=== PATIENT | male | born 1970 | race Caucasian/White ===

== ENCOUNTER 2017-02-27 07:23 | Day surgery (SDC) | payer BC ==
[2017-02-25 11:43] VITALS: BMI 30.7
[~2017-02-27 07:23] MED LIST: LACTATED RINGERS 1,000 ML IV SCH
[2017-02-27 07:55] VITALS: TEMP 98.5
[2017-02-27] MEDS ORDERED: MIDAZOLAM 2 MG/2 ML VIAL ONE (08:54)
[2017-02-27] MEDS ORDERED: PROPOFOL 10 MG/ML 20 ML VIAL IV ONE (08:54)
[2017-02-27] MEDS ORDERED: fentaNYL (PF) 50 MCG/ML 2 ML AMP ONE (08:54)
[2017-02-27] MEDS ORDERED: LIDOCAINE 1% INJ 10MG/ML (20 ML MDV) ONE (08:54)
--- NOTE | 2017-02-27 09:30 | P.OP ---
Date of Procedure: 02/27/17 Preoperative Diagnosis: GERD Altered Bowel habit Postoperative Diagnosis: Reflux esophagitis Fundic polyps Gastritis Diverticolusis COoon polyp Internal hemorrhoids Procedure(s) Performed: EGD with biopsy using cold biopsy forceps Colonoscopy with biopsy using cold biopsy forceps Implants: Anesthesia: GABRIELA Surgeon: Ashkan Rodriguez Pathology: other Condition: stable Disposition: PACU Indications for Procedure: History of severe reflux Altered bowel habit Operative Findings: Description of Procedure: A timeout was performed to verify the correct patient and correct procedure. Patient was on continuous vitals and pulse ox monitoring throughout the procedure. He was placed in lateral decubitus position and a bite block was inserted. A well-lubricated endoscope was passed orally. The esophagus was intubated without difficulty. The EGD was passed beyond the pylorus into the first and second portion of the duodenum. There was mild duodenitis. Taken from the antrum and the body. Polyps were seen in the body as well as the cardia which were biopsied. The scope was retroflexed. . No mass, ulcer or bleeding noted within the gastric lumen. The GE junction is measured at 38 cm from the incisors . These were also taken from the body and the GE junction in the lower esophagus There was mild reflux esophagitis. The endoscope was gradually withdrawn. No other abnormality identified in the esophagus. Perianal examination revealed external skin tags. Digital rectal examination was performed. Normal prostate. A well-lubricated endoscope was passed per rectally and was gradually advanced beyond the sigmoid colon, splenic flexure, transverse colon, hepatic flexure and cecum. The ileocecal valve was visualized. Then mild diverticulosis noted without any evidence of diverticulitis in the sigmoid colon. Scope was gradually withdrawn inspecting all the mucosal surfaces. A polyp was seen in the ascending colon and sigmoid colon and biopsied with the help of a cold biopsy forceps. Bowel prep was fair on the left side and poor on the right side of the colon . No other polyps or masses noted. ONce in the Rectum the scope was retorflexed to revela Grade 2 hemorrhoids. he scope was gradually withdrawn. Patient tolerated the procedure well and was taken to post anesthesia care unit in stable condition. Plan - Discharge Summary New Discharge Prescriptions: No Action Omeprazole [PriLOSEC] 20 mg PO DAILY HYDROcodone/APAP 10-325MG [[place] 10-325] 1 tab PO Q8HR PRN PRN Reason: Pain Discharge Medication List HYDROcodone/APAP 10-325MG [[place] 10-325] 1 tab PO Q8HR PRN 02/27/17 [History] Omeprazole [PriLOSEC] 20 mg PO DAILY 02/27/17 [History]
[2017-02-27 09:52] VITALS: BP 126/86; PULSE 65; RESP 18
== END 2017-02-27 10:06 | disposition home or self-care (01) ==
LOC: ORWHC2ENDO 07:23
PROVIDERS: ATTEND Surgery
DX: K21.0 Gastro-esophageal reflux disease with esophagitis (principal); K29.50 Unspecified chronic gastritis without bleeding; K31.7 Polyp of stomach and duodenum; K57.30 Diverticulosis of large intestine without perforation or abscess without bleeding; K63.5 Polyp of colon; K64.1 Second degree hemorrhoids; K64.4 Residual hemorrhoidal skin tags; K29.80 Duodenitis without bleeding; Z87.19 Personal history of other diseases of the digestive system; F17.200 Nicotine dependence, unspecified, uncomplicated; Z79.899 Other long term (current) drug therapy
CPT/HCPCS: 88305; 88342; 45380; 43239; J2250; J2001; J3010; J2704

== ENCOUNTER → 2017-07-15 | Outpatient (CLI) | payer BC ==
[2017-07-15 14:04] LABS: Appearance,Urine Clear (Clear); Bilirubin,Urine Negative (Negative); Glucose,Urine (UA) Negative (Negative); Ketones,Urine Negative (Negative); Leukocyte Esterase,Urine Negative (Negative); Nitrite,Urine Negative (Negative); Protein,Urine Negative (Negative); Specific Gravity,Urine 1.015 (1.001-1.035); UA Billing (MACRO vs. MICRO) CHEM; Urobilinogen,Urine <2.0 mg/dL (<2.0)
[2017-07-15 14:11] LABS: Basophils # (A) 0.1 k/uL (0-0.2); Basophils % (A) 1 %; CH 30.5; CHCM 31.7; Eosinophils # (A) 0.3 k/uL (0-0.7); Eosinophils % (A) 3 %; HCT 49.7 % (39.0-53.0); HDW 2.42; HGB 15.5 gm/dL (13.0-17.5); Luc # (Auto) 0.14; Luc % (Auto) 2; Lymphocytes # (A) 1.9 k/uL (1.0-4.8); Lymphocytes % (A) 20 %; MCH 30.2 pg (25.0-35.0); MCHC 31.2 g/dL (31.0-37.0); MCV 96.6 fL (80.0-100.0); Mean Platelet Volume 7.8; Monocytes # (A) 0.3 k/uL (0-1.0); Monocytes % (A) 3 %; Neutrophils # (A) 6.9 k/uL (1.3-7.7); Neutrophils % (A) 72 %; RBC 5.14 m/uL (4.30-5.90); RDW 14.7 % (11.5-15.5); WBC 9.7 k/uL (3.8-10.6); WBC (Perox) 9.47
[2017-07-15 14:17] LABS: Partial Thromboplastin Time 25.2 sec (22.0-30.0); Prothrombin Time 10.4 sec (9.0-12.0)
[2017-07-15 14:28] LABS: Anion Gap 10 mmol/L; Blood Urea Nitrogen 17 mg/dL (9-20); Calcium 9.9 mg/dL (8.4-10.2); Carbon Dioxide 28 mmol/L (22-30); Chloride 103 mmol/L (98-107); Glucose 108 mg/dL (74-99); Non-African American GFR(MDRD) >60 (>60 ml/min/1.73 sqM); Potassium 4.8 mmol/L (3.5-5.1); Sodium 141 mmol/L (137-145)
--- NOTE | 2017-07-15 14:44 | XR ---
EXAMINATION TYPE: XR chest 2V DATE OF EXAM: 07/15/2017 COMPARISON: NONE HISTORY: Presurgical TECHNIQUE: Frontal and lateral views of the chest are obtained. FINDINGS: There is no focal air space opacity, pleural effusion, or pneumothorax seen. The cardiac silhouette size is within normal limits. The 9th thoracic vertebral body shows anterior wedging, lo ss of height of approximately 50% anteriorly. IMPRESSION: No acute cardiopulmonary process. There is a compression deformity suspected at T9.
== END | disposition home or self-care (01) ==
LOC: LABPAT 12:48
PROVIDERS: ATTEND Orthopaedic Surgery Orthopaedic Surgery of the Spine
DX: Z01.810 Encounter for preprocedural cardiovascular examination (principal); Z01.812 Encounter for preprocedural laboratory examination; M43.17 Spondylolisthesis, lumbosacral region
CPT/HCPCS: 36415; 71020; 80048; 81003; 85025; 85610; 85730; 86850; 86900; 86901; 87070

== ENCOUNTER 2017-07-23 10:47 | Inpatient (IN) | payer BC ==
[2017-07-16 14:37] VITALS: BMI 28.5
[~2017-07-23 10:47] MED LIST changes: +BACITRACIN 50,000 UNIT, POLYMYXIN B 500,000 UNIT in SODIUM CHLORIDE 0.9% IRRIGATIO 1,00... IRRIGATION ONE; +DEXAMETHASONE SOD PHOSPHATE 10 MG/ML 1 ML VIAL IV ONE; -LACTATED RINGERS 1,000 ML IV SCH; +LIDOCAINE 1% 20 ML VIAL (10MG/ML) FOR IV START INTRADERMA PRN; +MIDAZOLAM 2 MG/2 ML VIAL IV PRN; +ONDANSETRON 4 MG/2 ML VIAL IVP ONE; +SCOPOLAMINE 1.5MG/72HR PATCH TRANSDERM ONE; +ceFAZolin IN SWFI 2 GM/20 ML SYRINGE IVP ONE
[2017-07-23] MEDS: LACTATED RINGERS 1,000 ML IV SCH (11:00)
[2017-07-23] MEDS ORDERED: THROMBIN (BOVINE) 5,000 UNIT VIAL TOPICAL ONE (13:47)
[2017-07-23] MEDS ORDERED: KETAMINE 10 MG/ML 20 ML VIAL ONE (13:47)
[2017-07-23] MEDS ORDERED: fentaNYL (PF) 50 MCG/ML 2 ML AMP ONE (13:47)
[2017-07-23] MEDS ORDERED: HYDROmorphone (PF) 1 MG/ML ONE (13:47)
[2017-07-23] MEDS ORDERED: HEPARIN SODIUM,PORCINE 10,000 UNIT/ML 1 ML VIAL ONE (13:47)
[2017-07-23] MEDS ORDERED: SUCCINYLCHOLINE CHLORIDE 100 MG/5 ML SYR IV ONE (13:47)
[2017-07-23] MEDS ORDERED: PROPOFOL 10 MG/ML 20 ML VIAL IV ONE (13:47)
[2017-07-23] MEDS ORDERED: MIDAZOLAM 2 MG/2 ML VIAL ONE (13:47)
[2017-07-23] MEDS ORDERED: LIDOCAINE 1% INJ 10MG/ML (20 ML MDV) ONE (13:47)
[2017-07-23] MEDS ORDERED: GELATIN SPONGE,ABSORB (LARGE) 1 EACH SPONGE TOPICAL ONE (13:47)
[2017-07-23] MEDS ORDERED: SODIUM CHLORIDE 0.9% IRRIG 1,000 ML BTL IRRIGATION ONE (13:47)
[2017-07-23] MEDS ORDERED: LIDOCAINE 0.5% (PF) 5 MG/ML (50 ML SDV) SQ ONE (13:47)
[2017-07-23] MEDS ORDERED: BUPIVACAINE LIPOSOME/PF 1.3% 20 ML, BUPIVACAIN-EPI 0.5%-1:200,000 25 ML, SODIUM CHLORID... MISCELLANE ONE ×3 (13:53)
[2017-07-23] MEDS ORDERED: SODIUM CHLORIDE 0.9% 0 ML with ceFAZolin 2 GM IV ONE ×2 (13:59)
[2017-07-23] MEDS ORDERED: LACTATED RINGERS 1,000 ML IV ONE ×3 (17:14)
[2017-07-23] MEDS ORDERED: HYDROmorphone 0.5 MG/0.5 ML SYRINGE IVP PRN (17:32)
[2017-07-23] MEDS ORDERED: HYDROmorphone 2 MG/ML 1 ML SYRINGE IVP PRN (17:32)
[2017-07-23] MEDS ORDERED: ONDANSETRON 4 MG/2 ML VIAL IVP PRN (17:32)
[2017-07-23] MEDS ORDERED: BENZOCAINE/MENTHOL LOZENG 1 EACH LOZENGE MUCOUS MEM PRN (17:32)
[2017-07-23] MEDS ORDERED: MAGNESIUM HYDROXIDE 2,400 MG/10 ML CUP PO PRN (17:32)
[2017-07-23] MEDS ORDERED: HYDROmorphone 1 MG/ML 1 ML SYRINGE IVP PRN (17:32)
[2017-07-23] MEDS ORDERED: HYDROcodone/APAP 5-325MG 1 EACH TAB PO PRN (17:32)
--- NOTE | 2017-07-23 17:41 | P.OP ---
Date of Procedure: 07/23/17 Preoperative Diagnosis: Spondylolisthesis L5-S1 Stenosis L5-S1 Lower extremity radiculopathy Spondylolysis L5 Postoperative Diagnosis: Same Anesthesia: GETA Pathology: none sent Condition: stable Disposition: PACU Description of Procedure: DESCRIPTION OF PROCEDURE(S): BRIEF OPERATIVE NOTE Preoperative Diagnosis: Spondylolisthesis L5-S1, spondylolysis L5, spinal stenosis L5-S1, degenerative disc disease L5-S1, lower extremity radiculopathy Postoperative Diagnosis: Same Procedure: Laminectomy and decompression with foraminotomies and facetectomy L5- S1 bilaterally Minimally invasive Posterior lateral decompression and fusion L5-S1 Minimally invasive Transforaminal lumbar interbody fusion for a 360 fusion L5-S1 Discectomy for decompression L5-S1 Placement of interbody graft L5-S1 Harvesting of bone marrow aspirate via the pedicle of L5 Local autogenous bone grafting Use of Cell Saver Use of bone graft extenders Surgeon: Dr. Marshall Blasting Contract Miner: Praveen SMITH who is present throughout the entire the case persistence during positioning, dissection, exposure, visualization, and all crucial elements of the case as well as closure. Anesthesia: General anesthesia Estimated blood loss: Approximately 300 mL with 150 given back through Cell Saver Complications: None apparent Components implanted: K2M minimally invasive [place] pedicle screw system with a 6 mm peek interbody cage and 1 osteal amp sponge and 15 mL's of DBX bone fiber to supplement the local autogenous bone graft Disposition: To recovery room in good stable condition. OPERATIVE INDICATIONS The patient has had long-standing issues in their lower back and lower extremities. His found have a dynamic spondylolisthesis grade 2 at L5-S1. He has significant disc degeneration and evidence of lower extremity radiculopathy. His imaging correlated well with his low back and lower extremity symptoms. He had been through significant treatment for his low back and then been through treatment for his neck in the past as well. He fell his low back was giving him more severe symptoms and he was interested in pursuing surgical intervention for his lumbar spine. The patient has been through conservative treatment. We discussed various treatment options including surgery, and the patient wishes to proceed with surgery We discussed the risk, patient's alternatives and benefits of surgery including but not limited to, risk of bleeding risk of infection, risk of need for further surgery, risk of decreased, loss of motion, muscle function, malunion nonunion, hardware failure , nerve damage, paralysis, heart attack, blindness and . OPERATIVE SUMMARY After discussing all the risks, patient alternatives and benefits at length, the patient elected to proceed with surgical intervention, signed informed consent, and presented for their procedure. The patient was seen and examined in the preoperative holding area and the surgical site was marked. The patient was given antibiotics and brought to the operating room. The patient was sedated and intubated by anesthesia in standard fashion. The patient was positioned on to the operating room table in a prone position on the appropriate frame which was well-padded and well molded. We were careful to pad any bony prominences and pressure points. We were careful to maintain the patient's cervical spine and good neutral alignment and position throughout. The patient was prepped and draped in a normal standard fashion. An appropriate timeout and keystone protocol performed. We were able to proceed with the surgery. The local wound area was infiltrated with local anesthetic. I was able utilize C-arm guidance to establish appropriate position over the pedicles bilaterally at the appropriate levels below his tattoos at L5-S1 bilaterally. With the appropriate levels confirmed was able to make small stab incisions over the appropriate pedicle sites bilaterally. Utilizing C-arm in his house able to establish a Jamshidi needle over the lateral aspect of the pedicle and advanced the trocar into the pedicle being careful not to breech superiorly inferiorly medially or laterally. Position was confirmed regularly with AP and lateral images on C-arm. I was able to establish the trocar into the pedicle appropriately into the posterior aspect of the vertebral body bilaterally at the appropriate levels at L5 and S1 bilaterally. This was done at each of the pedicle positions and each of the vertebrae. At L5 on the right thigh harvested bone marrow aspirate via the Jamshidi trocar for about 20 mL of ulnar aspirate to be used for supplementation of the bone graft. I was able place the guidewire into the trocar and into the vertebral body appropriately under C-arm guidance. Dissection was taken down over the wire to the appropriate starting position for the screw placed. The appropriate length screw was chosen, threaded over the guidewire and screwed appropriately into the pedicle and vertebral body under C-arm guidance in excellent alignment and position with good bony purchase. This is done at each of the screw sites at the appropriate levels at L5 and S1 bilaterally. With the screws intact I extended the incision to connect the screw hole sites on the most symptomatic side on the right. I dissected down to establish access over the pars and lamina to the base of the spinous process. I was able to expose the facet joint. The capsule the facet was taken down and showed some facet arthrosis at the joint. I was able to use a combination of curettes and Kerrison rongeurs and a high-speed drill to take down the facet joint and do a facetectomy. Partial laminectomy was also performed. Of note the patient did have spondylolysis and a free Duque fragment. Portions of the lamina were taken down for decompression and for use in bone grafting. I was able get excellent foraminal decompression and central decompression with undermining across midline to perform a laminectomy centrally and contralaterally. As able get good central decompression. The ligamentum flavum was taken down to further decompress centrally and at bilateral neural foramen. I was able to expose the disc space and visualize the traversing nerve root. Note was made of some disc protrusion at the level causing further compression of the nerve root. I was able to establish a annulotomy at the appropriate level protecting soft tissue and neural structures. Note was made of some severe disc desiccation at the disc. I performed a complete discectomy with accommodation of curettes and rasps and scrapers. I was able get good endplate preparation at the disc space. I sized for the appropriate size interbody spacer protecting the soft tissue and neural structures. The wound was copiously irrigated and suctioned dry. There is no evidence of any dural tear or leak. I was able to pack the disc space with local autogenous bone graft as well as a small amount of infuse which was also placed into the interbody cage itself. Protecting the soft tissue structures and neural structures I was able place the interbody cage in good alignment and good position with good fit and fill at the interbody space. His issues was confirmed with C-arm guidance. Good hemostasis maintained. There is no evidence of any dural tear or leak. The wound was irrigated and suctioned dry. With the hardware intact, intraoperative C-arm imaging was again taken which showed good alignment and position of the hardware at the appropriate levels at L5-S1 with good reduction of the spondylolisthesis and good recruitment of the interbody space at L5-S1. We were then able to measure, contour and place the rods and appropriate hardware bilaterally. I was able to place capcrews, tighten them down, and shear them off appropriately. The sheared portion was counted and accounted for. With this intact I was able to place the local autogenous bone graft with additional bone graft enhancer as necessary into the posterior lateral gutters over the decorticated transverse processes. The remainder of the infuse was placed over the facet joint on the contralateral side after taking down the facet joint capsule. With the bone graft intact, a stable construct, and good decompression at the appropriate levels, we were able to proceed with closure. Good hemostasis was maintained. There is no evidence of dural tear or leak. The fascia was closed for a watertight closure. he subcuticular tissue was closed with absorbable suture. The wound was cleaned and dried and dressed with the appropriate dressing. The drapes were broken down. The patient was gently rolled back onto their hospital bed being careful to maintain their cervical spine and good neutral alignment and position. They were woken up by anesthesia, extubated, and brought to the recovery room in good stable condition. The patient will be admitted to the hospital for appropriate postoperative care , medical management and monitoring. We will continue to follow them closely about the postoperative course.
--- NOTE | 2017-07-23 18:00 | FL ---
EXAMINATION TYPE: FL guidance operating room, XR lumbar spine 2 or 3V DATE OF EXAM: 07/23/2017 CLINICAL HISTORY: Low back pain, lumbar fusion TECHNIQUE: Fluoroscopy. 2 intraoperative views lumbar spine. COMPARISON: None. FINDINGS: Fluoroscopic guidance was provided during lumbar fusion procedure performed by Dr. Marshall. A total of 1.38 minutes of fluoroscopic time was utilized during the procedure and 5 spot intraopera tive images are acquired. Intraoperative images acquired show spondylolisthesis L5-S1 level with disc space narrowing. There ar e posterior interpedicular rods and screws placed at this level. IMPRESSION: As Above.
[2017-07-23] MEDS: HYDROmorphone 0.5 MG/0.5 ML SYRINGE IVP PRN ×4 (18:30→18:55)
[2017-07-23] MEDS: HYDROcodone/APAP 5-325MG 1 EACH TAB PO PRN (20:33)
[2017-07-23] MEDS: DIAZEPAM 5 MG TAB PO PRN (20:33)
[2017-07-23] MEDS: NICOTINE 21MG/24HR PATCH TRANSDERM SCH (20:34)
[2017-07-23] MEDS: SODIUM CHLORIDE 0.9% 1,000 ML IV SCH (20:39)
[2017-07-23] MEDS: HYDROmorphone 1 MG/ML 1 ML SYRINGE IVP PRN (21:58)
[2017-07-23] MEDS: GABAPENTIN 300 MG CAP PO SCH (22:52)
[2017-07-23] MEDS: ceFAZolin IN SWFI 2 GM/20 ML SYRINGE IVP SCH (23:04)
[2017-07-24] MEDS: HYDROcodone/APAP 5-325MG 1 EACH TAB PO PRN (01:32)
[2017-07-24] MEDS: HYDROmorphone 1 MG/ML 1 ML SYRINGE IVP PRN (03:20)
[2017-07-24] MEDS: DIAZEPAM 5 MG TAB PO PRN ×3 (03:20→16:57)
[2017-07-24] MEDS: LACTATED RINGERS 1,000 ML IV SCH (04:55)
[2017-07-24] MEDS ORDERED: HYDROmorphone 2 MG/ML 1 ML SYRINGE IVP PRN (07:13)
[2017-07-24] MEDS ORDERED: HYDROmorphone 1 MG/ML 1 ML SYRINGE IVP ONE (07:15)
[2017-07-24 07:20] LABS: Basophils % (A) 0 %; CH 29.6; CHCM 31.2; Eosinophils # (A) 0.1 k/uL (0-0.7); Eosinophils % (A) 0 %; HCT 40.1 % (39.0-53.0); HDW 2.27; HGB 12.8 gm/dL (13.0-17.5); Luc # (Auto) 0.09; Luc % (Auto) 1; Lymphocytes # (A) 1.5 k/uL (1.0-4.8); Lymphocytes % (A) 10 %; MCH 30.5 pg (25.0-35.0); MCV 95.5 fL (80.0-100.0); Mean Platelet Volume 7.7; Monocytes # (A) 0.6 k/uL (0-1.0); Monocytes % (A) 4 %; Neutrophils % (A) 85 %; RDW 14.3 % (11.5-15.5); WBC 15.3 k/uL (3.8-10.6); WBC (Perox) 16.11
[2017-07-24] MEDS: GABAPENTIN 300 MG CAP PO SCH ×2 (07:44→19:19)
[2017-07-24] MEDS: PANTOPRAZOLE 40 MG TABLET PO SCH (07:44)
[2017-07-24] MEDS: NICOTINE 21MG/24HR PATCH TRANSDERM SCH ×2 (07:45→07:56)
[2017-07-24] MEDS: ceFAZolin IN SWFI 2 GM/20 ML SYRINGE IVP SCH (07:45)
[2017-07-24] MEDS: SODIUM CHLORIDE 0.9% 1,000 ML IV SCH (07:45)
[2017-07-24 07:53] LABS: Anion Gap 10 mmol/L; Blood Urea Nitrogen 16 mg/dL (9-20); Calcium 9.1 mg/dL (8.4-10.2); Carbon Dioxide 24 mmol/L (22-30); Chloride 105 mmol/L (98-107); Glucose 128 mg/dL (74-99); Non-African American GFR(MDRD) >60 (>60 ml/min/1.73 sqM); Potassium 4.3 mmol/L (3.5-5.1); Sodium 139 mmol/L (137-145)
--- NOTE | 2017-07-24 09:06 | P.PN ---
Progress Note - Text Progress Note Date: 07/24/17 Postoperative day #1 Patient is seen and examined today at bedside. The patient has some pain around the surgical site as expected. Pain is being controlled with medication. He has been out of bed standing this morning and his Soto has been removed. Physical Exam Afebrile with stable vital signs Abdomen is soft nontender. Chest has good excursion deep and space expiration The incision site is clean dry and intact. No erythema there is no purulence. There was some small bloody drainage on the dressing but it is still intact. Extremities have not had neurologic change from prior to surgery. He has sustained dorsal flexion plantar flexion and EHL intact. Calves and thighs were soft nontender without evidence of DVT. Assessment/Plan Postoperative day #1 status post decompression and fusion at L5-S1 for his spondylolisthesis with stenosis Patient is progressing as expected from the surgery. He'll try to continue with his pain control with IV and oral medications and try to mobilize further. We will continue to increase the patient's mobilization with therapy. We will continue pain control with oral or IV medications. Hopefully he'll be okay for discharge home in the next 1-2 days. He is requesting certain assistive devices for home including a shower seat and raised toilet seat which we can arrange for him We'll continue to follow patient closely.
[2017-07-24] MEDS: HYDROcodone/APAP 10-325MG 1 EACH TAB PO PRN ×4 (09:55→23:13)
[2017-07-24] MEDS: SENNOSIDES-DOCUSATE SODIUM 1 EACH TAB PO SCH (09:57)
[2017-07-24] MEDS: HYDROmorphone 2 MG/ML 1 ML SYRINGE IVP PRN (13:33)
--- NOTE | 2017-07-24 15:44 | P.CON ---
Consult Note - . Consult date: 07/23/17 Assessment/Plan:: CONSULTATION DATE OF CONSULTATION: 07/23/2017 REASON FOR CONSULTATION: Medical management HISTORY OF PRESENT ILLNESS: 46-year-old male with chronic stable medical conditions that include GERD history of GI bleed, long-standing issues with low back and lower extremities. Patient is found to have dynamic spondylolisthesis at L5-S1 with significant degeneration evidence of lower extremity radiculopathy. Had significant outpatient treatment with little symptomatic improvement. As such patient is status post laminectomy and decompression foraminotomy, facetectomy with interbody fusion and decompression at L5-S1. Hospitalist service consulted for medical management. REVIEW OF SYSTEMS: GEN.: [None] EYES: [None] HEENT: [None] NECK: [None] RESPIRATORY: [None] CARDIOVASCULAR: [None] GASTROINTESTINAL: [None] GENITOURINARY: [None] MUSCULOSKELETAL: [Lower back and leg numbness/weakness bilaterally] LYMPHATICS: [None] HEMATOLOGICAL: [None] PSYCHIATRY: [None] NEUROLOGICAL: [None] PAST MEDICAL HISTORY: GERD PAST SURGICAL HISTORY: Right rotator cuff, bilateral foot surgery, pain clinic procedure, EGD colonoscopy 02/27/2017 SOCIAL HISTORY: Smoking use history: Current everyday smoker 1 pack per day to current no plans for quitting Alcohol use history: Occasional Drug use history: None reported Marital status: Living situation: Lives with and children Work: FAMILY HISTORY: Noncontributory HOME MEDICATIONS: Omeprazole 20 mg by mouth daily Hydrocodone/acetaminophen 103 25 mg 1 tablet by mouth every 8 hours when necessary Gabapentin 300 mg by mouth twice a day ALLERGIES: No known ALLERGIES VITAL SIGNS: [temperature 97.5, pulse 97, respirations 16, blood pressure 102/54 , oxygen saturation 98% on room air. BMI noted] GENERAL: [Average built, sitting up, mildly uncomfortable. EYES: [Pupils equal. Conjunctiva tarik]l. HEENT: [External appearance of nose and ears normal, oral cavity grossly normal] . NECK: [JVD not raised; masses not palpable]. HEART: [First and second heart sounds are normal; no edema]. LUNGS:[ Respiratory rate normal; clear to auscultation]. ABDOMEN: [Soft, nontender, liver spleen not palpable, no masses palpable]. LYMPHATICS: [No lymph nodes palpable in the axilla and neck]. PSYCH: [Alert and oriented x3; mood and affect tarik]l. NEUROLOGICAL: [Cranial nerves grossly intact; no facial asymmetry, power and sensation grossly intact]. MUSCULOSKELETAL: Midline back incision surgical dressing in place no drainage noted INVESTIGATIONS: None new ASSESSMENT: -Status post laminectomy and decompression foraminotomy, facetectomy with interbody fusion and decompression at L5-S1 for degenerative disc disease and spondylolisthesis -GERD PLAN: Continue home medications, work with PT and OT, plan of care discussed with the patient and family at the bedside their agreement will follow closely. Thank you Dr Marshall for this kind referral and allowing us to participate in the care of your patient. BAGGER MEAT STATEMENT: Patient was seen and examined by nurse practitioner Emili Connolly and all elements of the case discussed with attending Dr. Angulo.
--- NOTE | 2017-07-24 17:04 | PN ---
PROGRESS NOTE DATE OF SERVICE: July 24, 2017. PRESENTING COMPLAINT: Lower back surgery. INTERVAL HISTORY: The patient is status post lumbar surgery. Some pain is present. Has been up to the bathroom. Did make urine. Tolerating a diet. REVIEW OF SYSTEMS: Done for constitutional, cardiovascular, GI, pulmonary and findings as above. CURRENT MEDICATIONS: Resumed that include Dilaudid, Valium. PHYSICAL EXAMINATION: Temperature 99, pulse 97, respiration 16, blood pressure 104/65, pulse ox 97% on room air. General appearance sitting up in a chair, comfortable on his iPhone. Eyes pupils equal. Conjunctivae normal. NECK: JVD not raised. Mass not palpable. Lungs decreased breath sounds. Cardiovascular first and second sounds normal. No edema. ABDOMEN: Soft, nontender. Liver and spleen not palpable. Psychiatry alert and oriented x3. Mood and affect normal. INVESTIGATIONS: White count 15.3, hemoglobin 12.8. The patient's hemoglobin was 15.5 on 07/15/2017. ASSESSMENT: 1. Acute blood-loss anemia as expected from surgery. 2. Leukocytosis likely reactive. No obvious evidence of infection. 3. Chronic nicotine dependence patient is a cigarette smoker. 4. Lumbar surgery for spondylolisthesis L5-L4 stenosis and lower extremity radiculopathy. PLAN: Care was discussed with the patient. Continue with pain management. The patient already given a nicotine patch. Tolerating his diet. Since blood pressure is running a bit on the low side, we will continue with IV fluids. Thank you, Dr. Marshall. HARSH / JARADN: [id number] /
--- NOTE | 2017-07-24 17:04 | XR ---
EXAMINATION TYPE: XR lumbar spine 2 or 3V , 3 VIEWS DATE OF EXAM ORDERED: 07/24/2017 HISTORY: post op pain. COMPARISON: None. FINDINGS: There has been an interpedicular fusion with spacer placement at L5-S1. There is a minimal grade 1 spondylolisthesis of L5 on S1. Alignment is otherwise normal. No fractures are seen. No bony destructive lesions are seen. The pedicles are intact. IMPRESSION: STATUS POST INTERPEDICULAR FUSION, L5-S1.
[2017-07-25] MEDS: SODIUM CHLORIDE 0.9% 1,000 ML IV SCH ×2 (00:47→11:27)
[2017-07-25] MEDS: HYDROmorphone 2 MG/ML 1 ML SYRINGE IVP PRN ×2 (00:54→06:33)
[2017-07-25 01:48] VITALS: BP 107/51
[2017-07-25] MEDS: HYDROcodone/APAP 10-325MG 1 EACH TAB PO PRN (05:01)
[2017-07-25 07:17] VITALS: PULSE 105; RESP 18; TEMP 96.6
[2017-07-25] MEDS: PANTOPRAZOLE 40 MG TABLET PO SCH (07:59)
[2017-07-25] MEDS: LACTATED RINGERS 1,000 ML IV SCH (07:59)
[2017-07-25] MEDS: NICOTINE 21MG/24HR PATCH TRANSDERM SCH (07:59)
[2017-07-25] MEDS: GABAPENTIN 300 MG CAP PO SCH (07:59)
[2017-07-25] MEDS: SENNOSIDES-DOCUSATE SODIUM 1 EACH TAB PO SCH (07:59)
[2017-07-25] MEDS ORDERED: oxyCODONE-APAP 5-325MG 1 EACH TAB PO PRN (08:57)
--- NOTE | 2017-07-25 08:57 | P.DS ---
Providers Date of admission: 07/23/17 10:47 Expected date of discharge: 07/25/17 Attending physician: Brandon Marshall Consults: 07/23/17 17:32 Consult Physician Routine Consulting Provider: Ang Angulo Consult Reason/Comments: Medical management Do you want consulting provider notified?: Yes Primary care physician: Elan Prado - Discharge Diagnosis(es) (1) Spondylolisthesis at L5-S1 level Current Visit: Yes Status: Acute (2) Low back pain Current Visit: Yes Status: Acute (3) Radiculopathy with lower extremity symptoms Current Visit: Yes Status: Acute (4) Spondylolysis of lumbar region Current Visit: Yes Status: Acute (5) Lumbar stenosis Current Visit: Yes Status: Acute Hospital Course: This is a pleasant 46-year-old male who presented with a L5-S1 spondylolisthesis and spinal canal stenosis with low back pain, lower extremity radiculopathy, and spondylolysis of L5 failed outpatient conservative therapy. He was admitted for minimally invasive posterior lateral decompression and fusion with transfer lumbar interbody fusion L5-S1. The patient tolerated the procedure well and did well postoperatively. He did have a significant exacerbation of low back pain yesterday after standing. He states his symptoms have improved since that time. X-rays of the lumbosacral spine were taken at that time which showed evidence that the rods and screws and interbody fusion remain in good alignment and good position and L5-S1. Patient has had some difficulty with pain control was states he would like to stop the Dilaudid today with plans to discharge home this afternoon on oral medications. Condition on day of discharge stable. Patient will be discharged home. Patient was cleared preoperatively for surgery by Dr. Prado. Patient currently denies any nausea, vomiting, fever, or chills. Patient is eating and voiding freely without difficulty. He has not had a bowel movement but has been passing gas and is not experiencing any abdominal pain. Patient may shower Tegaderm dressing intact. Patient may remove Tegaderm dressing in 3 days and shower without a dressing at that time. Patient should keep Steri- Strips intact and allow them to fall off naturally. Patient should refrain from driving until at least after their first follow-up appointment in the office. Patient should avoid excessive bending, lifting, and twisting; no lifting greater than 10 pounds. Patient has been given prescriptions for a high -rise toilet seat and shower bench. Prescriptions is also written for a 2 wheeled walker. He is given a prescription for Percocet 5 mg/325 mg 1 tab every 6 hours as needed for pain at discharge. He is also given a prescription for Valium 5 mg which she may take 1 tab every 8 hours as needed for pain. He has been taking Valium in the hospital for some control his symptoms without significant difficulty. He may resume his other home medications as prescribed at discharge. Physical Exam on day of discharge: Patient is awake, alert, and oriented 3 Vital signs stable Good chest excursion with deep inspiration and expiration Abdomen soft nontender No signs or symptoms of DVT; no calf pain Extensor hallucis longus, plantarflexion, and dorsiflexion positive sustained bilateral lower extremities Incision is clean, dry, and intact; no erythema, purulence, or signs of infection Tegaderm dressing and non-stick Telfa intact Patient Condition at Discharge: Stable Plan - Discharge Summary Discharge Rx Participant: Yes New Discharge Prescriptions: New Diazepam [Valium] 5 mg PO TID PRN #90 tab PRN Reason: Muscle Spasm oxyCODONE-APAP 5-325MG [Percocet 5-325 mg] 1 tab PO Q6HR PRN #90 tab PRN Reason: Pain No Action Omeprazole [PriLOSEC] 20 mg PO DAILY HYDROcodone/APAP 10-325MG [[place] 10-325] 1 tab PO Q8HR PRN PRN Reason: Pain Gabapentin [Neurontin] 300 mg PO BID Discharge Medication List HYDROcodone/APAP 10-325MG [[place] 10-325] 1 tab PO Q8HR PRN 02/27/17 [History] Omeprazole [PriLOSEC] 20 mg PO DAILY 02/27/17 [History] Gabapentin [Neurontin] 300 mg PO BID 07/16/17 [History] Diazepam [Valium] 5 mg PO TID PRN #90 tab 07/25/17 [Rx] oxyCODONE-APAP 5-325MG [Percocet 5-325 mg] 1 tab PO Q6HR PRN #90 tab 07/25/17 [ Rx] Follow up Appointment(s)/Referral(s): Praveen Gallardo, [place] [[employer]] - 2 Weeks (Patient may follow-up with Praveen Gallardo PA-C or Dr. Jeremías Marshall at [facility] in 2-3 weeks following discharge. ) Activity/Diet/Wound Care/Special Instructions: 1. Patient may shower with Tegaderm dressing intact. 2. Patient may remove Tegaderm dressing in 3 days and shower without a dressing at that time. 3. Patient should keep Steri-Strips intact and allow them to fall off naturally. 4. Patient should refrain from driving until at least after their first follow- up appointment in the office. 5. Patient should avoid excessive bending, twisting, and lifting; no lifting greater than 10 pounds 6. Take medications as prescribed 7. Do not soak in tub Discharge Disposition: HOME SELF-CARE
[2017-07-25] MEDS ORDERED: HYDROcodone/APAP 7.5-325MG 1 EACH TAB PO PRN ×4 (10:32→10:43)
--- NOTE | 2017-07-25 15:52 | P.PN ---
Progress Note - Text Progress Note Date: 07/25/17 DATE OF SERVICE: 07/25/2017 PRESENTING COMPLAINT: Back pain HISTORY OF PRESENT ILLNESS: 46-year-old male who is status post laminectomy decompression with foraminotomies facetectomy with interbody fusion and decompression at L5-S1. INTERVAL HISTORY: 07/25/2017: Patient seen in follow-up sitting up in a chair with family at the bedside appears comfortable, working with physical therapy, walking in the hallways using his walker. Tolerating his diet eating 100%, has not moved his bowels yet but is passing gas. Pain is fairly well controlled. REVIEW OF SYSTEMS: Done for constitutional ,cardiovascular, GI, pulmonary with relevant findings as above. CURRENT MEDICATIONS [place], Valium, Neurontin, Dilaudid, milk of magnesia, nicotine patch, Percocet, Senokot, PHYSICAL EXAM VITAL SIGNS: Temperature 96.6, pulse 105, respiratory rate 18, blood pressure 107/51, oxygen saturation 96% on room air. GENERAL APPEARANCE: Sitting up in a chair not in distress. EYES: Pupils equal. Conjunctiva normal. NECK: JVD not raised. Mass not palpable. RESPIRATORY: Respiratory effort normal. Lungs clear to auscultation. CARDIOVASCULAR: First and second sounds normal. No edema. ABDOMEN: Soft. Liver and spleen not palpable. No tenderness. No mass palpable. PSYCHIATRY: Alert and oriented x3. Mood and affect normal. INTEGUMENT: Midline spinal incision covered with a dry dressing. No drainage noted. INVESTIGATIONS: None new ASSESSMENT: -Acute blood loss anemia as expected from surgery -Leukocytosis likely reactive, no obvious evidence of infection. -Chronic nicotine dependence patient is a cigarette smoker. -Lumbar surgery for spondylo-thesis L4 through L5 stenosis and lower extremity radiculopathy. PLAN: From medical standpoint patient is stable for discharge, orthopedics we'll likely discharge patient later on this afternoon. OIL PIT ATTENDANT statement: Patient was seen and examined by nurse practitioner Emili Connolly and all elements of the case discussed with attending Dr. Angulo
--- NOTE | 2017-07-25 21:05 | PN ---
PROGRESS NOTE DATE OF SERVICE: 07/25/2017 ATTENDING NOTE: The patient was seen and examined by me. I discussed with my nurse practitioner, Ms. Connolly. The patient's pain is better. She is walking in the hallways. Has not had a bowel movement. Making good urine. Tolerating a diet. EXAMINATION: Afebrile, pulse 105, respirations 18, blood pressure 107/51. LUNGS: Clear. CARDIOVASCULAR: First and second sounds normal. No blood work from today. ASSESSMENT: Status post lumbar surgery. PLAN: Continue current medication and treatment plan. Overall doing much better. Care was discussed the patient. Not to smoke was reinforced. Discharge will be determined as per Ortho. MMODL / IJN: [id number] /
== END 2017-07-25 15:15 | disposition home or self-care (01) | DRG 460 ==
LOC: 2ORMAIN 10:47 → 3SUR 17:50
PROVIDERS: ADMIT Orthopaedic Surgery Orthopaedic Surgery of the Spine; ATTEND Orthopaedic Surgery Orthopaedic Surgery of the Spine
PROC: 0ST40ZZ Resection of Lumbosacral Disc, Open Approach (ICD-10-PCS; 2017-07-23)
PROC: 07DS3ZZ Extraction of Vertebral Bone Marrow, Percutaneous Approach (ICD-10-PCS; 2017-07-23)
PROC: 0SG30AJ Fusion of Lumbosacral Joint with Interbody Fusion Device, Posterior Approach, Anterior Column, Open Approach (ICD-10-PCS; principal; 2017-07-23 12:45)
DX: M43.17 Spondylolisthesis, lumbosacral region (principal); D62 Acute posthemorrhagic anemia; K21.9 Gastro-esophageal reflux disease without esophagitis; D72.829 Elevated white blood cell count, unspecified; F17.210 Nicotine dependence, cigarettes, uncomplicated; M51.17 Intervertebral disc disorders with radiculopathy, lumbosacral region; M48.07 Spinal stenosis, lumbosacral region; Z79.899 Other long term (current) drug therapy
CPT/HCPCS: 72100; 80048; 85025; 86850; 86891; 86900; 86901

== ENCOUNTER 2019-05-22 14:27 | Emergency (ER) | payer OTHER, BC ==
[2019-05-22] MEDS ORDERED: HYDROmorphone 1 MG/ML 1 ML SYRINGE IVP STA ×2 (14:39→15:29)
[2019-05-22] MEDS ORDERED: DIPH,PERTUS(ACELL)TETVAC-LF 0.5 ML VIAL IM ONE (14:39)
[2019-05-22] MEDS ORDERED: SODIUM CHLORIDE 0.9% 1,000 ML IV STA (14:39)
[2019-05-22 14:48] VITALS: BP 125/88; PULSE 79; RESP 20; TEMP 98.2
[2019-05-22 14:49] LABS: Basophils # (A) 0.1 k/uL (0-0.2); Basophils % (A) 1 %; Eosinophils # (A) 0.1 k/uL (0-0.7); Eosinophils % (A) 2 %; HCT 37.7 % (39.0-53.0); HGB 12.8 gm/dL (13.0-17.5); Lymphocytes # (A) 1.4 k/uL (1.0-4.8); Lymphocytes % (A) 15 %; MCH 31.9 pg (25.0-35.0); MCHC 33.9 g/dL (31.0-37.0); MCV 93.8 fL (80.0-100.0); Mean Platelet Volume 7.3; Monocytes # (A) 0.3 k/uL (0-1.0); Monocytes % (A) 3 %; Neutrophils # (A) 7.2 k/uL (1.3-7.7); Neutrophils % (A) 78 %; Platelet Count 227 k/uL (150-450); RBC 4.02 m/uL (4.30-5.90); RDW 13.7 % (11.5-15.5); WBC 9.2 k/uL (3.8-10.6)
[2019-05-22 15:02] LABS: ALT 30 U/L (21-72); AST 18 U/L (17-59); African American GFR (CKD) >90 (>60 ml/min/1.73 sqM); Albumin 1.4 g/dL (3.5-5.0); Alcohol 14 mg/dL; Alkaline Phosphatase 20 U/L (38-126); Anion Gap 5 mmol/L; Blood Urea Nitrogen 10 mg/dL (9-20); Chloride 130 mmol/L (98-107); Glucose 53 mg/dL (74-99); Sodium 144 mmol/L (137-145); Total Bilirubin 0.1 mg/dL (0.2-1.3); Total Protein 2.8 g/dL (6.3-8.2)
[2019-05-22 15:03] LABS: INR 1.3 (<1.2); Partial Thromboplastin Time 28.5 sec (22.0-30.0); Prothrombin Time 13.6 sec (9.0-12.0)
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
[2019-05-22 15:07] LABS: Amylase <30 U/L (30-110)
[2019-05-22 15:09] LABS: Calcium 3.6 mg/dL (8.4-10.2); Carbon Dioxide 9 mmol/L (22-30); Potassium 1.8 mmol/L (3.5-5.1)
[2019-05-22 15:11] LABS: Creatine Kinase 186 U/L (55-170)
[2019-05-22 15:41] LABS: ALT 60 U/L (21-72); AST 38 U/L (17-59); African American GFR (CKD) >90 (>60 ml/min/1.73 sqM); Albumin 4.1 g/dL (3.5-5.0); Alcohol 16 mg/dL; Alkaline Phosphatase 61 U/L (38-126); Amylase 38 U/L (30-110); Anion Gap 8 mmol/L; Blood Urea Nitrogen 20 mg/dL (9-20); Carbon Dioxide 20 mmol/L (22-30); Chloride 111 mmol/L (98-107); Glucose 94 mg/dL (74-99); Potassium 5.7 mmol/L (3.5-5.1); Sodium 139 mmol/L (137-145); Total Bilirubin 0.4 mg/dL (0.2-1.3); Total Protein 6.8 g/dL (6.3-8.2)
[2019-05-22 15:48] LABS: Creatine Kinase 236 U/L (55-170)
[2019-05-22 15:49] LABS: Basophils # (A) 0.1 k/uL (0-0.2); Basophils % (A) 0 %; Eosinophils # (A) 0.1 k/uL (0-0.7); Eosinophils % (A) 1 %; HCT 46.9 % (39.0-53.0); HGB 15.1 gm/dL (13.0-17.5); Lymphocytes # (A) 1.2 k/uL (1.0-4.8); Lymphocytes % (A) 7 %; MCHC 32.2 g/dL (31.0-37.0); MCV 93.3 fL (80.0-100.0); Mean Platelet Volume 7.2; Monocytes # (A) 0.5 k/uL (0-1.0); Monocytes % (A) 3 %; Neutrophils # (A) 14.2 k/uL (1.3-7.7); Neutrophils % (A) 88 %; Platelet Count 240 k/uL (150-450); RBC 5.03 m/uL (4.30-5.90); RDW 13.7 % (11.5-15.5); WBC 16.1 k/uL (3.8-10.6)
[2019-05-22 16:02] LABS: Creatine Kinase MB 1.9 ng/mL (0.0-2.4); Troponin I <0.012 ng/mL (0.000-0.034)
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
[2019-05-22 16:05] LABS: INR 0.9 (<1.2)
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
[2019-05-22 16:06] LABS: Partial Thromboplastin Time 21.8 sec (22.0-30.0)
[2019-05-22] MEDS ORDERED: LIDOCAINE 1% INJ 10MG/ML (20 ML MDV) SQ STA (16:29)
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
== END 2019-05-22 18:15 | disposition home or self-care (01) ==
LOC: EC 14:27
DX: S51.012A Laceration without foreign body of left elbow, initial encounter (principal); S61.211A Laceration without foreign body of left index finger without damage to nail, initial encounter; S81.802A Unspecified open wound, left lower leg, initial encounter; S30.1XXA Contusion of abdominal wall, initial encounter; S60.511A Abrasion of right hand, initial encounter; S50.812A Abrasion of left forearm, initial encounter; S50.811A Abrasion of right forearm, initial encounter; S50.311A Abrasion of right elbow, initial encounter; S80.212A Abrasion, left knee, initial encounter; S80.211A Abrasion, right knee, initial encounter; S20.311A Abrasion of right front wall of thorax, initial encounter; Z23 Encounter for immunization; F17.200 Nicotine dependence, unspecified, uncomplicated; Z79.899 Other long term (current) drug therapy; V28.4XXA Motorcycle driver injured in noncollision transport accident in traffic accident, initial encounter; Y93.55 Activity, bike riding; Y92.410 Unspecified street and highway as the place of occurrence of the external cause
CPT/HCPCS: 99285; 12001; 96374; 96376; 96361; 90471; 36415; 93005; 86900; 86901; 80053; 82150; 82550; 82553; 83690; 84484; 85025; 85610; 85730; 86850; 80320; 72170; 73130; 73562; 71045; 72125; 70450; 71260; 74177; 90715; J1170; Q9967

== ENCOUNTER → 2022-05-22 | Outpatient (CLI) | payer OTHER ==
--- NOTE | 2022-05-22 15:02 | CA ---
Exercise Stress Test Report Name: Vega Hwang Exam Date: 05/22/2022 08:48 Exam Location: [place] Stress Ht (in): 71 Wt (lb): 200 BSA: 2.11 Ordering Phys: Ashleigh Mary MD Referring Phys: LUIS, Technologist: Fito Cordoba Age: 51 Gender: M : 1970 Procedure CPT: Indications: R07.9 CHEST PAIN ICD-10 Codes: Patient History: Chest tightness Medications: Meds past 24 hrs: Pretest Chest Pain: STRESS TEST Ang Protocol Exercise Duration (min:sec): 09:[address] Depressions (mm): Angina Score: Mcgregor Score: Resting HR (bpm): 74 Peak HR (bpm): 141 Resting BP (mmHg): 122 / 86 Peak BP (mmHg): 170 / 94 MPHR: 171 Target HR: 145 % MPHR: 82 METS: 10.3 Total Dose: Peak Dose: Atropine: Double Product: 15768 BP Response: Stress Termination: Patient back and hip pain Stress Symptoms: No chest pain or symptoms Stress Summary: ECG ANALYSIS Resting ECG: Stress ECG: CONCLUSIONS Baseline 174 beats a minute, Baseline blood pressure 122/86 mmHg Patient exercised on a Ang protocol for 9 minutes achieving a peak heart rate of 141 beats minute Peak blood pressure 171 94 mmHg No symptoms noted Baseline ECG showed sinus mechanism with occasional PVCs There was no ECG for ischemia No sustained or nonsustained arrhythmias noted Good exercise capacity Dr. Eliecer Villa MD (Electronically Signed) Final Date: 22 May 2022 12:25
== END | disposition home or self-care (01) ==
LOC: RADNMMAIN 08:06
PROVIDERS: ATTEND Family Medicine
DX: R07.9 Chest pain, unspecified (principal)
CPT/HCPCS: 93017

== ENCOUNTER 2024-05-05 12:06 | Day surgery (SDC) | payer OTHER ==
[~2024-05-05 12:06] MED LIST changes: -BACITRACIN 50,000 UNIT, POLYMYXIN B 500,000 UNIT in SODIUM CHLORIDE 0.9% IRRIGATIO 1,00... IRRIGATION ONE; -DEXAMETHASONE SOD PHOSPHATE 10 MG/ML 1 ML VIAL IV ONE; +LIDOCAINE 1% (10MG/ML) FOR IV START INTRADERMA PRN; -LIDOCAINE 1% 20 ML VIAL (10MG/ML) FOR IV START INTRADERMA PRN; -MIDAZOLAM 2 MG/2 ML VIAL IV PRN; -ONDANSETRON 4 MG/2 ML VIAL IVP ONE; -SCOPOLAMINE 1.5MG/72HR PATCH TRANSDERM ONE; -ceFAZolin IN SWFI 2 GM/20 ML SYRINGE IVP ONE; +fentaNYL (PF) 50 MCG/ML 2 ML AMP IV PRN
[2024-05-05] MEDS: LACTATED RINGERS 1,000 ML IV SCH (12:39)
[2024-05-05] MEDS: IV FLUID CONTINUATION 1,000 ML IV ONE (12:40)
[2024-05-05] MEDS: ONDANSETRON 4 MG/2 ML VIAL IVP ONE (12:40)
[2024-05-05] MEDS ORDERED: fentaNYL (PF) 50 MCG/ML 2 ML AMP ONE (13:31)
[2024-05-05] MEDS ORDERED: PROPOFOL 10 MG/ML 20 ML VIAL IV ONE (13:31)
[2024-05-05] MEDS ORDERED: LIDOCAINE 1% INJ 10MG/ML (20 ML MDV) ONE (13:31)
[2024-05-05] MEDS ORDERED: SUCCINYLCHOLINE CHLORIDE 200 MG/10 ML VIAL IV ONE (13:31)
[2024-05-05] MEDS ORDERED: MIDAZOLAM 2 MG/2 ML VIAL ONE (13:31)
--- NOTE | 2024-05-05 14:15 | P.OP ---
Date of Procedure: 05/05/24 Preoperative Diagnosis: left vocal cord lesion Postoperative Diagnosis: same Procedure(s) Performed: microlaryngoscopy with biopsy left true vocal cord lesion Anesthesia: GETA Surgeon: Hugo Schwab Estimated Blood Loss (ml): 1 Pathology: other (left vocal cord) Condition: stable Disposition: PACU Indications for Procedure: a 53-year-old white male with chronic hoarseness. 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 No corresponding lesion on the right Description of Procedure: patient brought in the operative suite and placed in a supine position. Patient underwent induction of general anesthesia with oral endotracheal intubation without difficulty. The patient was prepped and draped in usual aseptic fashion. tooth Guard was placed and direct laryngoscopy was performed with systematic evaluation of the base of tongue vallecula both piriform sinuses post cricoid area and endolarynx. With the larynx in good visualization the Zeiss microscope was brought into position to visualize the larynx in the laryngoscope was placed in suspension. The lesion on the left vocal cord was grasped with a microcup forcep and was excised from the underlying tissue grossly entirely. There were some small remnants which were then removed with microcup forceps. This was excised leaving the lamina appropriate intact. Hemostasis was gained spontaneously. No other lesions were noted. The laryngoscope tooth guard was then withdrawn. The patient was allowed to emerge from general anesthesia having tolerated procedure well was extubated in the operating suite and transferred to postop recovery area in satisfactory condition.
[2024-05-05 14:18] VITALS: TEMP 97
[2024-05-05 15:11] VITALS: BP 112/83; PULSE 77; RESP 14
== END 2024-05-05 15:20 | disposition home or self-care (01) ==
LOC: OR 12:06
PROVIDERS: ATTEND Otolaryngology
DX: J38.1 Polyp of vocal cord and larynx
CPT/HCPCS: 88305

== ENCOUNTER → 2024-09-27 | Outpatient (CLI) | payer OTHER ==
--- NOTE | 2024-09-27 16:08 | US ---
EXAMINATION TYPE: US thyroid st tissue head/neck DATE OF EXAM: 09/27/2024 COMPARISON: NONE CLINICAL INDICATION: Male, 54 years old with history of R22.1 LOCALIZED SWELLING, MASS AND LUMP, NECK ; Palpable right lateral neck inferior to ear. Patient states he has had it x 1 year but felt like < 6 months ago it has been getting noticeable. TECHNIQUE: Limited scanning of the area of concern. FINDINGS: Patients area of concern scanned. Superficial subdermal hypoechoic area seen = 1.1 x 0.8 x 0.3 cm nonspecific appearance and too small to characterize. IMPRESSION: Scanning of the area of palpable abnormality demonstrates a small 1.1 x 0.8 x 0.3 cm non specific area of echogenicity could be related to scar or small lymph node. Small nodule not exclude d. Correlate clinically. [facility], , 09/27/2024 4:06 PM
== END | disposition home or self-care (01) ==
LOC: RADUSWWP 15:24
PROVIDERS: ATTEND Family Medicine
DX: R22.1 Localized swelling, mass and lump, neck (principal)
CPT/HCPCS: 76536